=== PATIENT | male | born 1960 | race African-American/Black ===

== ENCOUNTER 2017-12-02 14:22 | Inpatient (IN) | payer OTHER ==
[2017-12-02 16:58] VITALS: BMI 25.0
--- NOTE | 2017-12-02 18:54 | HP ---
CIWA Score - CIWA Score Nausea/Vomitin-No Nausea/No Vomiting Muscle Tremors: 2 Anxiety: 3 Agitation: 3 Paroxysmal Sweats: 3 Orientation: 1-Uncertain about Date (no distress) Tacttile Disturbances: 2-Mild Itch/Numbness/Burn Auditory Disturbances: 0-None Visual Disturbances: 0-None Headache: 0-None Present CIWA-Ar Total Score: 14 Admission ROS BHS - HPI Chief Complaint: " I cant sleep if I don't drink, I need help" alcohol withdrawal symptoms Allergies/Adverse Reactions: Allergies Allergy/AdvReac Type Severity Reaction Status Date / Time No Known Allergies Allergy Verified 12/02/17 17:29 History of Present Illness: 57 yo male with hx of nicotine, crack / cocaine and alcohol dependence is here seeking detox. Last detox [facility] 2016. Denies suicidal / homicidal ideation or hx suicide attempt. Denies hx of black outs or seizures. Exam Limitations: No Limitations - Ebola screening Have you traveled outside of the country in the last 21 days: No Have you had contact with anyone from an Ebola affected area: No Have you been sick,other than usual withdrawal symptoms: No Do you have a fever: No - Review of Systems Constitutional: Changes in sleep, Unintentional Wgt. Loss EENT: reports: No Symptoms Reported Respiratory: reports: No Symptoms reported Cardiac: reports: No Symptoms Reported GI: reports: Poor Appetite, Poor Fluid Intake : reports: Incontinence Musculoskeletal: reports: Other (left leg wekness uses cane for ambulation, report lost cane) Integumentary: reports: No Symptoms Reported Neuro: reports: Unsteady Gait (getting from a seated to standing position) Endocrine: reports: Increased Thirst Hematology: reports: Anemia Psychiatric: reports: Orientated x3, Anxious Other Systems: Reviewed and Negative Patient History - Patient Medical History Hx Anemia: Yes Hx Asthma: No Hx Chronic Obstructive Pulmonary Disease (COPD): No Hx Cancer: No Hx Cardiac Disorders: No Hx Congestive Heart Failure: No Hx Hypertension: No Hx Hypercholesterolemia: No Hx Pacemaker: No HX Cerebrovascular Accident: No Hx Seizures: No Hx Diabetes: No Hx Gastrointestinal Disorders: No Hx Liver Disease: No Hx Genitourinary Disorders: No Hx Sexually Transmitted Disorders: No Hx Renal Disease (ESRD): No Hx Thyroid Disease: No Hx Human Immunodeficiency Virus (HIV): No Hx Hepatitis C: No Hx Depression: Yes Hx Suicide Attempt: No Hx Bipolar Disorder: No Hx Schizophrenia: No - Patient Surgical History Past Surgical History: No - PPD History Previous Implant?: No Documented Results: Positive w/o proof Implanted On Prior R Admission?: No PPD to be Administered?: No - Smoking Cessation Smoking history: Current every day smoker Have you smoked in the past 12 months: Yes Aproximately how many cigarettes per day: 20 Hx Chewing Tobacco Use: No Initiated information on smoking cessation: Yes 'Breaking Loose' booklet given: 12/02/17 - Substance & Tx. History Hx Alcohol Use: Yes Hx Substance Use: Yes Substance Use Type: Alcohol, Cocaine Hx Substance Use Treatment: Yes [facility] - Substances Abused Alcohol Route: Oral Frequency: Daily Amount used: 4-6 PACK/24OZ BEER Age of first use: 13 Date of Last Use: 12/02/17 Cocaine Route: Smoking Frequency: Daily Amount used: $400/WEEK Age of first use: 12 Date of Last Use: 12/02/17 Family Disease History - Family Disease History Family History: Unable to Obtain Admission Physical Exam [facility] - Vital Signs Vital Signs: Vital Signs - 24 hr 12/02/17 16:53 Temperature 97.5 F L Pulse Rate 66 Respiratory 18 Rate Blood Pressure 127/79 - Physical General Appearance: Yes: Disheveled, Mild Distress, Thin, Sweating, Anxious, Other (maldorous) HEENTM: Yes: EOMI, Hearing grossly Normal, Normal ENT Inspection, Normocephalic , Normal Voice, ANGELIQUE, Pharynx Normal, Tm's normal, Other (Edentulous) Respiratory: Yes: Chest Non-Tender, Lungs Clear, Normal Breath Sounds, No Respiratory Distress, No Accessory Muscle Use Neck: Yes: No masses,lesions,Nodules, Trachea in good position Breast: Yes: Breast Exam Deferred Cardiology: Yes: Regular Rhythm, Regular Rate Abdominal: Yes: Normal Bowel Sounds, Non Tender, Flat, Soft Back: Yes: Normal Inspection Musculoskeletal: Yes: full range of Motion, Gait Steady, Pelvis Stable Extremities: Yes: Normal Capillary Refill, Normal Inspection, Normal Range of Motion, Pedal Edema (+1 both ankles) Neurological: Yes: environmental designer II-XII NML intact, Fully Oriented, Alert, Motor Strength 5/5, Depressed Affect Integumentary: Yes: Normal Color, Dry, Warm Lymphatic: Yes: Within Normal Limits - Diagnostic (1) Alcohol dependence with withdrawal Current Visit: Yes Status: Acute Qualifiers: Complication of substance-induced condition: uncomplicated Qualified Code(s ): F10.230 - Alcohol dependence with withdrawal, uncomplicated (2) Cocaine dependence Current Visit: Yes Status: Acute Qualifiers: Substance use status: uncomplicated Qualified Code(s): F14.20 - Cocaine dependence, uncomplicated (3) Difficulty sleeping Current Visit: Yes Status: Acute (4) H/O urinary incontinence Current Visit: Yes Status: Chronic Cleared for Admission [facility] - Detox or Rehab [facility] Level of Care: Medically Managed Detox Regimen/Protocol: Librium [facility] Breath Alcohol Content Breath Alcohol Content: 0 Urine Drug Screen - Results Drug Screen Negative: No Urine Drug Screen Results: MALIK-Cocaine
[2017-12-02] MEDS ORDERED: MENTHOL/PHENOL 1 EACH UD MM PRN (19:02)
[2017-12-02] MEDS ORDERED: ACETAMINOPHEN 325 MG TABLET (FP) PO PRN (19:02)
[2017-12-02] MEDS ORDERED: chlordiazePOXIDE HCL 25 MG CAPSULE PO ONE (19:02)
[2017-12-02] MEDS ORDERED: MAGNESIUM CITRATE 300 ML BOTTLE PO PRN (19:02)
[2017-12-02] MEDS ORDERED: IBUPROFEN 400 MG TABLET (FP) PO PRN (19:02)
[2017-12-02] MEDS ORDERED: NICOTINE POLACRILEX 2 MG GUM BC PRN (19:02)
[2017-12-02] MEDS ORDERED: chlordiazePOXIDE HCL 25 MG CAPSULE PO PRN (19:02)
[2017-12-02] MEDS ORDERED: guaiFENesin/D-METHORPHAN HB 10 ML UNIT-DOSE CUPS PO PRN (19:02)
[2017-12-02] MEDS ORDERED: MAGNESIUM HYDROX 2400MG/30ML ORAL SUSPENSION 30 ML CUP PO PRN (19:02)
[2017-12-02] MEDS ORDERED: LOPERAMIDE HCL 2 MG CAPSULE PO PRN (19:02)
[2017-12-02] MEDS ORDERED: MAG HYDROX/AL HYDROX/SIMETH 30 ML UNIT-DOSE CUP PO PRN (19:02)
[2017-12-02] MEDS ORDERED: P-EPHED 60MG/TRIPROLIDI 2.5MG TABLET PO PRN (19:02)
[2017-12-02] MEDS: MELATONIN 5 MG TABLETS PO PRN (22:10)
[2017-12-02] MEDS: chlordiazePOXIDE HCL 25 MG CAPSULE PO SCH (22:10)
[2017-12-02] MEDS: THIAMINE HCL 100 MG TABLET (FP) PO SCH (22:10)
[2017-12-03] MEDS: chlordiazePOXIDE HCL 25 MG CAPSULE PO SCH ×3 (06:03→17:20)
--- NOTE | 2017-12-03 10:18 | EKG ---
Test Reason : Blood Pressure : / mmHG Vent. Rate : 062 BPM Atrial Rate : 062 BPM P-R Int : 128 ms QRS Dur : 086 ms QT Int : 404 ms P-R-T Axes : 066 -24 263 degrees QTc Int : 410 ms NORMAL SINUS RHYTHM ABNORMAL ECG NO PREVIOUS ECGS AVAILABLE Confirmed by AILEEN HENRIQUEZ, MIRIAM ([id number]) on 12/03/2017 10:18:24 AM Referred By: Confirmed By:MIRIAM GALLAGHER MD
[2017-12-03] MEDS: PRENATAL VITAMINS W/ FOLIC ACID TABLET (FP) PO SCH (10:20)
[2017-12-03] MEDS: NICOTINE 21 MG/24 HOURS TOPICAL PATCH TD SCH (10:21)
[2017-12-03 10:26] LABS: HEMATOCRIT 43.4 % (35.4-49); HEMOGLOBIN 14.3 GM/dL (11.7-16.9); MCH 30.4 pg (25.7-33.7); MEAN CELL VOLUME 92.1 fl (80-96); MEAN PLT VOLUME 8.9 fl (7.5-11.1); PLATELET COUNT 199 K/MM3 (134-434); RBC 4.71 M/mm3 (4.00-5.60); RDW 14.7 % (11.9-15.9); WHITE BLOOD COUNT 4.6 K/mm3 (4.0-10.0)
[2017-12-03 10:43] LABS: CHLORIDE 110 mmol/L (98-107); SODIUM 143 mmol/L (136-145)
[2017-12-03 11:00] LABS: ALK PHOS 54 U/L (45-117); ANION GAP 6 (8-16); BILIRUBIN,TOTAL 0.5 mg/dL (0.2-1.0); BLOOD UREA NITROGEN 18 mg/dL (7-18); CALCIUM 8.7 mg/dL (8.5-10.1); CO2 27 mmol/L (21-32); CREATININE 1.2 mg/dL (0.7-1.3); GLUCOSE,RANDOM 110 mg/dL (74-106); SGOT/AST 19 U/L (15-37); SGPT/ALT 26 U/L (12-78); TOT PROT 6.3 g/dl (6.4-8.2)
--- NOTE | 2017-12-03 12:19 | PN ---
S CIWA - CIWA Score Nausea/Vomitin Muscle Tremors: 3 Anxiety: 3 Agitation: 2 Paroxysmal Sweats: 1-Minimal Palms Moist Orientation: 0-Oriented Tacttile Disturbances: 1-Very Mild Itch/Numbness Auditory Disturbances: 1-Very Mild Visual Disturbances: 0-None Headache: 2-Mild CIWA-Ar Total Score: 16 BHS Progress Note (SOAP) Subjective: alert,irritable,anxious,interrupted sleep,tremor Objective: 12/03/17 12:16 Vital Signs Temperature 97.9 F 12/03/17 09:55 Pulse Rate 70 12/03/17 09:55 Respiratory Rate 18 12/03/17 09:55 Blood Pressure 137/83 12/03/17 09:55 O2 Sat by Pulse Oximetry (%) ekg nsr inverted t in 2,avf,v4 to v6 no chest pain,no sob no dizziness Laboratory Last Values WBC 4.6 K/mm3 (4.0-10.0) 12/03/17 08:30 RBC 4.71 M/mm3 (4.00-5.60) 12/03/17 08:30 Hgb 14.3 GM/dL (11.7-16.9) 12/03/17 08:30 Hct 43.4 % (35.4-49) 12/03/17 08:30 MCV 92.1 fl (80-96) 12/03/17 08:30 MCH 30.4 pg (25.7-33.7) 12/03/17 08:30 MCHC 33.0 g/dl (32.0-35.9) 12/03/17 08:30 RDW 14.7 % (11.9-15.9) 12/03/17 08:30 Plt Count 199 K/MM3 (134-434) 12/03/17 08:30 MPV 8.9 fl (7.5-11.1) 12/03/17 08:30 Sodium 143 mmol/L (136-145) 12/03/17 08:00 Potassium 4.0 mmol/L (3.5-5.1) 12/03/17 08:00 Chloride 110 mmol/L (98-107) H 12/03/17 08:00 Carbon Dioxide 27 mmol/L (21-32) 12/03/17 08:00 Anion Gap 6 (8-16) L 12/03/17 08:00 BUN 18 mg/dL (7-18) 12/03/17 08:00 Creatinine 1.2 mg/dL (0.7-1.3) 12/03/17 08:00 Creat Clearance w eGFR > 60 (>60) 12/03/17 08:00 Random Glucose 110 mg/dL (74-106) H 12/03/17 08:00 Calcium 8.7 mg/dL (8.5-10.1) 12/03/17 08:00 Total Bilirubin 0.5 mg/dL (0.2-1.0) 12/03/17 08:00 AST 19 U/L (15-37) 12/03/17 08:00 ALT 26 U/L (12-78) 12/03/17 08:00 Alkaline Phosphatase 54 U/L (45-117) 12/03/17 08:00 Total Protein 6.3 g/dl (6.4-8.2) L 12/03/17 08:00 Albumin 3.0 g/dl (3.4-5.0) L 12/03/17 08:00 HIV 1&2 Antibody Screen Negative 12/03/17 08:00 HIV P24 Antigen Negative 12/03/17 08:00 Assessment: 12/03/17 12:19 withdrawal symptom Plan: continue detox
--- NOTE | 2017-12-03 16:33 | CONSULT ---
[facility] Psychiatric Consult - Data Date of interview: 12/03/17 Admission source: [facility] Identifying data: First admission to [facility] for this 57 y/o AA male seeking detox treatment on for alcohol and cocaine dependence.Patient is single, a father of five,domiciled,unemployed and supported on SSI benefits. Substance Abuse History: Discussed in my interview.Patient confirms long standing history of substance abuse as reported in this [facility] extract : Smoking history: Current every day smoker. Have you smoked in the past 12 months: Yes. Aproximately how many cigarettes per day: 20. Hx Chewing Tobacco Use: No. Initiated information on smoking cessation: Yes. 'Breaking Loose' booklet given : 12/02/17. - Substance & Tx. History. Hx Alcohol Use: Yes. Hx Substance Use : Yes. Substance Use Type: Alcohol, Cocaine. Hx Substance Use Treatment: Yes ( Last detox [facility] 2016). - Substances Abused. Alcohol. Route: Oral. Frequency: Daily. Amount used: 4-6 PACK/24OZ BEER. Age of first use: 13. Date of Last Use: 12/02/17. Cocaine. Route: Smoking. Frequency: Daily. Amount used: $400/WEEK. Age of first use: 12. Date of Last Use: Medical History: History of anemia and urinary incontinence.Patient ambulates with a cane (history of weakness of left leg) Psychiatric History: No reported history of psychiatric hospitalizations.Patient indicates, however, that he sees a private psychiatrist for " sleep disorder ".Mr Jared tanner is currently prescribed seroquel 100 mg/hs by his provider.Denies history of suicide attempts. Physical/Sexual Abuse/Trauma History: No history of abuse. Additional Comment: Urine Drug Screen Results: MALIK-Cocaine.Noted. Mental Status Exam - Mental Status Exam Alert and Oriented to: Time, Place, Person Cognitive Function: Good Patient Appearance: Well Groomed (tall stature) Mood: Hopeful Affect: Normal Range Patient Behavior: Fatigued, Appropriate, Cooperative Speech Pattern: Clear Voice Loudness: Normal Thought Process: Goal Oriented Thought Disorder: Not Present Hallucinations: Denies Suicidal Ideation: Denies Homicidal Ideation: Denies Insight/Judgement: Fair Sleep: Poorly, Difficulty falling asleep Appetite: Fair Gait/Station: Other (walks with a cane.) Psychiatric Findings - Problem List ([place] 1, 2,3) (1) Alcohol dependence with withdrawal Current Visit: Yes Status: Acute Qualifiers: Complication of substance-induced condition: uncomplicated Qualified Code(s ): F10.230 - Alcohol dependence with withdrawal, uncomplicated (2) Cocaine dependence Current Visit: Yes Status: Acute Qualifiers: Substance use status: uncomplicated Qualified Code(s): F14.20 - Cocaine dependence, uncomplicated (3) Insomnia Current Visit: Yes Status: Acute - Initial Treatment Plan Initial Treatment Plan: Psychoeducation.Sleep hygiene.Detoxification.Seroquel 50 mg po hs.Side effects/benefits discussed with the patient. Jared tanner agrees to this careplan.Falls precautions.Observation.
[2017-12-03 18:55] LABS: URINE APPEARANCE CLEAR; URINE BILIRUBIN NEGATIVE (<2.0 mg/dL); URINE COLOR LTYELLOW; URINE GLUCOSE (UA) NEGATIVE (NEGATIVE); URINE KETONE NEGATIVE (NEGATIVE); URINE LEUK ESTERASE TRACE (NEGATIVE); URINE NITRITE NEGATIVE (NEGATIVE); URINE PROTEIN NEGATIVE (NEGATIVE); URINE UROBILINOGEN NEGATIVE mg/dL (0.2-1.0)
[2017-12-03 19:06] LABS: EPI CELLS RARE /HPF (FEW); URINE MUCUS RARE
[2017-12-03] MEDS: THIAMINE HCL 100 MG TABLET (FP) PO SCH (22:37)
[2017-12-03] MEDS: QUEtiapine FUMARATE 50 MG TABLET PO SCH (22:37)
[2017-12-04] MEDS: chlordiazePOXIDE HCL 25 MG CAPSULE PO SCH ×4 (00:09→17:55)
--- NOTE | 2017-12-04 08:56 | EKG ---
Test Reason : Blood Pressure : / mmHG Vent. Rate : 064 BPM Atrial Rate : 064 BPM P-R Int : 132 ms QRS Dur : 086 ms QT Int : 404 ms P-R-T Axes : 067 -31 264 degrees QTc Int : 416 ms NORMAL SINUS RHYTHM LEFT AXIS DEVIATION T WAVE ABNORMALITY, CONSIDER INFEROLATERAL ISCHEMIA ABNORMAL ECG WHEN COMPARED WITH ECG OF 02-DEC-2017 20:10, NO SIGNIFICANT CHANGE WAS FOUND Confirmed by AILEEN HENRIQUEZ, MIRIAM ([id number]) on 12/04/2017 8:55:42 AM Referred By: Confirmed By:MIRIAM GALLAGHER MD
[2017-12-04] MEDS: PRENATAL VITAMINS W/ FOLIC ACID TABLET (FP) PO SCH (10:26)
[2017-12-04] MEDS: NICOTINE 21 MG/24 HOURS TOPICAL PATCH TD SCH (10:26)
--- NOTE | 2017-12-04 11:45 | PN ---
[facility] CIWA - CIWA Score Nausea/Vomitin-Mild Nausea/No Vomiting Muscle Tremors: 4-Moderate,w/Arms Extend Anxiety: 3 Agitation: 4-Moderately Restless Paroxysmal Sweats: 1-Minimal Palms Moist Orientation: 0-Oriented Tacttile Disturbances: 1-Very Mild Itch/Numbness Auditory Disturbances: 0-None Visual Disturbances: 0-None Headache: 0-None Present CIWA-Ar Total Score: 14 S Progress Note (SOAP) Subjective: prefers taking librium with the capsule sweat gi distress poor toleration to power llibrium tremor restlessness Objective: 12/04/17 11:44 Vital Signs Temperature 98.2 F 12/04/17 09:58 Pulse Rate 85 12/04/17 09:58 Respiratory Rate 18 12/04/17 09:58 Blood Pressure 134/79 12/04/17 09:58 O2 Sat by Pulse Oximetry (%) Laboratory Last Values WBC 4.6 K/mm3 (4.0-10.0) 12/03/17 08:30 RBC 4.71 M/mm3 (4.00-5.60) 12/03/17 08:30 Hgb 14.3 GM/dL (11.7-16.9) 12/03/17 08:30 Hct 43.4 % (35.4-49) 12/03/17 08:30 MCV 92.1 fl (80-96) 12/03/17 08:30 MCH 30.4 pg (25.7-33.7) 12/03/17 08:30 MCHC 33.0 g/dl (32.0-35.9) 12/03/17 08:30 RDW 14.7 % (11.9-15.9) 12/03/17 08:30 Plt Count 199 K/MM3 (134-434) 12/03/17 08:30 MPV 8.9 fl (7.5-11.1) 12/03/17 08:30 Sodium 143 mmol/L (136-145) 12/03/17 08:00 Potassium 4.0 mmol/L (3.5-5.1) 12/03/17 08:00 Chloride 110 mmol/L (98-107) H 12/03/17 08:00 Carbon Dioxide 27 mmol/L (21-32) 12/03/17 08:00 Anion Gap 6 (8-16) L 12/03/17 08:00 BUN 18 mg/dL (7-18) 12/03/17 08:00 Creatinine 1.2 mg/dL (0.7-1.3) 12/03/17 08:00 Creat Clearance w eGFR > 60 (>60) 12/03/17 08:00 Random Glucose 110 mg/dL (74-106) H 12/03/17 08:00 Calcium 8.7 mg/dL (8.5-10.1) 12/03/17 08:00 Total Bilirubin 0.5 mg/dL (0.2-1.0) 12/03/17 08:00 AST 19 U/L (15-37) 12/03/17 08:00 ALT 26 U/L (12-78) 12/03/17 08:00 Alkaline Phosphatase 54 U/L (45-117) 12/03/17 08:00 Total Protein 6.3 g/dl (6.4-8.2) L 12/03/17 08:00 Albumin 3.0 g/dl (3.4-5.0) L 12/03/17 08:00 Urine Color Ltyellow 12/03/17 Unknown Urine Appearance Clear 12/03/17 Unknown Urine pH 6.0 (5.0-8.0) 12/03/17 Unknown Ur Specific [place] 1.015 (1.001-1.035) 12/03/17 Unknown Urine Protein Negative (NEGATIVE) 12/03/17 Unknown Urine Glucose (UA) Negative (NEGATIVE) 12/03/17 Unknown Urine Ketones Negative (NEGATIVE) 12/03/17 Unknown Urine Blood Negative (NEGATIVE) 12/03/17 Unknown Urine Nitrite Negative (NEGATIVE) 12/03/17 Unknown Urine Bilirubin Negative (<2.0 mg/dL) 12/03/17 Unknown Urine Urobilinogen Negative mg/dL (0.2-1.0) 12/03/17 Unknown Ur Leukocyte Esterase Trace (NEGATIVE) 12/03/17 Unknown Urine WBC (Auto) 2 /hpf (3-5) 12/03/17 Unknown Urine RBC (Auto) <1 /hpf (0-3) 12/03/17 Unknown Ur Epithelial Cells Rare /HPF (FEW) 12/03/17 Unknown Urine Mucus Rare 12/03/17 Unknown RPR Titer Nonreactive (NONREACTIVE) 12/03/17 08:00 HIV 1&2 Antibody Screen Negative 12/03/17 08:00 HIV P24 Antigen Negative 12/03/17 08:00 lab noted Assessment: 12/04/17 11:44 alcohol withdrawal sx Plan: continue detox
[2017-12-04] MEDS: QUEtiapine FUMARATE 50 MG TABLET PO SCH (22:30)
[2017-12-04] MEDS: THIAMINE HCL 100 MG TABLET (FP) PO SCH (22:30)
[2017-12-04] MEDS: chlordiazePOXIDE 5 MG CAPSULE PO SCH (22:31)
[2017-12-05] MEDS: chlordiazePOXIDE 5 MG CAPSULE PO SCH ×4 (04:18→18:40)
[2017-12-05] MEDS: PRENATAL VITAMINS W/ FOLIC ACID TABLET (FP) PO SCH (10:16)
[2017-12-05] MEDS: NICOTINE 21 MG/24 HOURS TOPICAL PATCH TD SCH (10:17)
--- NOTE | 2017-12-05 12:05 | PN ---
S Progress Note (SOAP) Subjective: alert,irritable,anxious,interrupted sleep Objective: 12/05/17 12:04 Vital Signs Temperature 98.8 F 12/05/17 09:43 Pulse Rate 70 12/05/17 09:43 Respiratory Rate 18 12/05/17 09:43 Blood Pressure 136/97 12/05/17 09:43 O2 Sat by Pulse Oximetry (%) Assessment: 12/05/17 12:04 withdrawal symptom Plan: continue detox,discharge in am
[2017-12-05] MEDS: MELATONIN 5 MG TABLETS PO PRN (22:43)
[2017-12-05] MEDS: THIAMINE HCL 100 MG TABLET (FP) PO SCH (22:43)
[2017-12-05] MEDS: QUEtiapine FUMARATE 50 MG TABLET PO SCH (22:43)
[2017-12-05] MEDS: chlordiazePOXIDE HCL 10 MG CAPSULE PO SCH (22:43)
[2017-12-06] MEDS: chlordiazePOXIDE HCL 10 MG CAPSULE PO SCH (06:14)
--- NOTE | 2017-12-06 09:53 | PN ---
S Progress Note (SOAP) Subjective: alert,no complaint Objective: 12/06/17 09:52 Vital Signs Temperature 97.4 F L 12/06/17 06:37 Pulse Rate 68 12/06/17 06:37 Respiratory Rate 18 12/06/17 06:37 Blood Pressure 135/75 12/06/17 06:37 O2 Sat by Pulse Oximetry (%) Assessment: 12/06/17 09:52 detox completed.no withdrawal symptom Plan: discharge today,follow up with after care program as arrangement
--- NOTE | 2017-12-06 09:56 | DS ---
[facility] Detox Discharge Summary Admission Date: 12/02/17 Discharge Date: 12/06/17 - History Present History: Alcohol Dependence, Cocaine Dependence Additional Comments: follow up with after care program as arrangement Pertinent Past History: insomnia - Physical Exam Results Vital Signs: Vital Signs Temperature 97.4 F L 12/06/17 06:37 Pulse Rate 68 12/06/17 06:37 Respiratory Rate 18 12/06/17 06:37 Blood Pressure 135/75 12/06/17 06:37 O2 Sat by Pulse Oximetry (%) Pertinent Admission Physical Exam Findings: withdrawal signs and symptom Laboratory Last Values WBC 4.6 K/mm3 (4.0-10.0) 12/03/17 08:30 RBC 4.71 M/mm3 (4.00-5.60) 12/03/17 08:30 Hgb 14.3 GM/dL (11.7-16.9) 12/03/17 08:30 Hct 43.4 % (35.4-49) 12/03/17 08:30 MCV 92.1 fl (80-96) 12/03/17 08:30 MCH 30.4 pg (25.7-33.7) 12/03/17 08:30 MCHC 33.0 g/dl (32.0-35.9) 12/03/17 08:30 RDW 14.7 % (11.9-15.9) 12/03/17 08:30 Plt Count 199 K/MM3 (134-434) 12/03/17 08:30 MPV 8.9 fl (7.5-11.1) 12/03/17 08:30 Sodium 143 mmol/L (136-145) 12/03/17 08:00 Potassium 4.0 mmol/L (3.5-5.1) 12/03/17 08:00 Chloride 110 mmol/L (98-107) H 12/03/17 08:00 Carbon Dioxide 27 mmol/L (21-32) 12/03/17 08:00 Anion Gap 6 (8-16) L 12/03/17 08:00 BUN 18 mg/dL (7-18) 12/03/17 08:00 Creatinine 1.2 mg/dL (0.7-1.3) 12/03/17 08:00 Creat Clearance w eGFR > 60 (>60) 12/03/17 08:00 Random Glucose 110 mg/dL (74-106) H 12/03/17 08:00 Calcium 8.7 mg/dL (8.5-10.1) 12/03/17 08:00 Total Bilirubin 0.5 mg/dL (0.2-1.0) 12/03/17 08:00 AST 19 U/L (15-37) 12/03/17 08:00 ALT 26 U/L (12-78) 12/03/17 08:00 Alkaline Phosphatase 54 U/L (45-117) 12/03/17 08:00 Total Protein 6.3 g/dl (6.4-8.2) L 12/03/17 08:00 Albumin 3.0 g/dl (3.4-5.0) L 12/03/17 08:00 Urine Color Ltyellow 12/03/17 Unknown Urine Appearance Clear 12/03/17 Unknown Urine pH 6.0 (5.0-8.0) 12/03/17 Unknown Ur Specific [place] 1.015 (1.001-1.035) 12/03/17 Unknown Urine Protein Negative (NEGATIVE) 12/03/17 Unknown Urine Glucose (UA) Negative (NEGATIVE) 12/03/17 Unknown Urine Ketones Negative (NEGATIVE) 12/03/17 Unknown Urine Blood Negative (NEGATIVE) 12/03/17 Unknown Urine Nitrite Negative (NEGATIVE) 12/03/17 Unknown Urine Bilirubin Negative (<2.0 mg/dL) 12/03/17 Unknown Urine Urobilinogen Negative mg/dL (0.2-1.0) 12/03/17 Unknown Ur Leukocyte Esterase Trace (NEGATIVE) 12/03/17 Unknown Urine WBC (Auto) 2 /hpf (3-5) 12/03/17 Unknown Urine RBC (Auto) <1 /hpf (0-3) 12/03/17 Unknown Ur Epithelial Cells Rare /HPF (FEW) 12/03/17 Unknown Urine Mucus Rare 12/03/17 Unknown RPR Titer Nonreactive (NONREACTIVE) 12/03/17 08:00 HIV 1&2 Antibody Screen Negative 12/03/17 08:00 HIV P24 Antigen Negative 12/03/17 08:00 Vital Signs Temperature 97.4 F L 12/06/17 06:37 Pulse Rate 68 12/06/17 06:37 Respiratory Rate 18 12/06/17 06:37 Blood Pressure 135/75 12/06/17 06:37 O2 Sat by Pulse Oximetry (%) - Treatment Hospital Course: Detox Protocol Followed, Detoxed Safely, Responded well, Discharged Condition Good Patient has Accepted a Rehab Referral to: declined - Medication Discharge Medications: Ambulatory Orders NK [No Known Home Medication] 12/02/17 - Diagnosis (1) Alcohol dependence with withdrawal Current Visit: Yes Status: Acute Qualifiers: Complication of substance-induced condition: uncomplicated Qualified Code(s ): F10.230 - Alcohol dependence with withdrawal, uncomplicated (2) Cocaine dependence Current Visit: Yes Status: Acute Qualifiers: Substance use status: uncomplicated Qualified Code(s): F14.20 - Cocaine dependence, uncomplicated
--- NOTE | 2017-12-06 10:04 | PN ---
S Progress Note (SOAP) Subjective: alert,no complaint Objective: 12/06/17 10:03 Vital Signs Temperature 97.4 F L 12/06/17 06:37 Pulse Rate 68 12/06/17 06:37 Respiratory Rate 18 12/06/17 06:37 Blood Pressure 135/75 12/06/17 06:37 O2 Sat by Pulse Oximetry (%) Assessment: 12/06/17 10:03 detox completed,no withdrawal symptom Plan: discharge today,follow up with after care program as arrangement
[2017-12-06 11:22] VITALS: BP 157/105; PULSE 79; TEMP 98.2
== END 2017-12-06 09:53 | disposition home or self-care (01) | DRG 774 ==
LOC: YASAS 14:22 → Y6N 18:09
PROVIDERS: ADMIT Surgery; ATTEND Surgery
PROC: HZ2ZZZZ Detoxification Services for Substance Abuse Treatment (ICD-10-PCS; principal; 2017-12-02)
DX: F10.230 Alcohol dependence with withdrawal, uncomplicated (principal); F14.20 Cocaine dependence, uncomplicated; F17.210 Nicotine dependence, cigarettes, uncomplicated; G47.00 Insomnia, unspecified; R26.2 Difficulty in walking, not elsewhere classified; Z99.89 Dependence on other enabling machines and devices
CPT/HCPCS: 36415; 71046-TC-FY; 80053; 81003; 81015; 85027; 86593; 87389; 93005; 93010